=== PATIENT | male | born 1940 | race Two or more races ===

== ENCOUNTER 2024-02-24 13:23 | Emergency (ER) | payer OTHER ==
[~2024-02-24] VITALS: Ht 165.1 cm; Wt 74.4 kg
--- NOTE | 2024-02-24 15:00 | ED.PDOC ---
HPI (NEURO) HPI Comments BIB grandson for left nonradiating paraspinal lumbar pain Reports he feel [address] to the bathroom C/o of pain located to the left paraspinal muscle pain rated 3/10 Denies history of chronic steroid use or history of osteoporosis Denies any history of cancer Denies fevers chills night sweats nausea vomiting unintentional weight loss Denies IV drug use history of HIV/TB Denies abdominal "tearing" pain Denies syncope Denies urinary incontinence or urinary changes Denies numbness tingling of the groin or inner thigh Denies previous back procedure or surgery Chief Complaint: Fall Injury Time Seen by MD: 14:03 Reviewed Notes: Nurses Notes, Medications, Allergies Information Source: Patient Mode of Arrival: Ambulatory Family History Family History: Reviewed,noncontributory to illness Social History Smoker: Non-Smoker Alcohol: Denies ETOH Use Drugs: Denies Drug Use All Other Systems: Reviewed and Negative (per hpi) Physical Exam General Appearance: No Apparent Distress, Normal HEENT: Head (Normocephalic atraumatic), Normal ENT Inspection, Pharynx Normal, TMs Normal Neck: Full Range of Motion, Non-Tender, Normal, Normal Inspection Respiratory: Chest Non-Tender, Lungs Clear, No Accessory Muscle Use, No Respiratory Distress, Normal Breath Sounds Cardiovascular: No Edema, No JVD, No Murmur, No Gallop, Normal Peripheral Pulses, Regular Rate/Rhythm Breast Exam: Deferred Gastrointestinal: No Organomegaly, Non Tender, No Pulsatile Mass, Normal Bowel Sounds, Soft Genitalia: Deferred Pelvic: Deferred Rectal: Deferred Extremities: No calf tenderness, Normal capillary refill, Normal inspection, Normal range of motion, Non-tender, No pedal edema Musculoskeletal : Apperance: Normal Neurologic: Alert, 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 Was a procedure done?: No Differential Diagnosis (SZ) Seizure: Other X-Ray, Labs, Meds, VS Vital Signs Date Time Temp Pulse Resp B/P (MAP) Pulse Ox O2 Delivery O2 Flow Rate FiO2 02/24/24 16:03 98.1 69 18 164/74 (104) 98 98.1 02/24/24 16:03 72 18 98 Room Air 02/24/24 13:55 98.0 66 18 176/72 (106) 96 PATIENT: JOSE MOBLEYOACCT: [id number]: [id number] : 1940 LOC: ER ROOM / BED: / AGE / SEX: 83 / M ADM STATUS: REG ER SERVICE [id number] ORDERING PHYSICIAN: DARREN GONZALEZ NP PROCEDURE(s): LUMB2 - LUMBAR SPINE 3 VIEW REASON: back pain ORDER NUMBER(s): [id number], ACCESSION NUMBER(s): [id number] CLINICAL INDICATION: back pain TECHNIQUE: 3 radiographic views of the lumbar spine were obtained. Comparison: None FINDINGS/IMPRESSION: Multilevel mild loss of vertebral body height of the lower thoracic spine of unknown chronicity. Otherwise, the vertebral body heights are maintained and no evidence of acute traumatic fractures. Grade 1 anterolisthesis of L4 on L5. Multilevel [id number] degenerative changes of the lumbar spine. Nonspecific punctate densities overlying the lower lumbar vertebra posterior elements. If symptoms persist, consider CT for further evaluation. ATED BY: MICHAEL LUBIN DO DICTATED DATE/TIME: 02/24/241552 SIGNED BY: MICHAEL LUBIN DO SIGNED DATE/TIME: 02/24/241552 CC: X-Ray, Labs, Meds, VS Comment Supportive care advised (rest, ice, heat, NSAIDs, stretching exercises) Massage muscles with cold pack or ice for 20 minutes 4 times per day. Usually most useful if there is swelling during the first 48 hours Heating pad on the most painful area for 20 minutes to relieve muscle spasm Sleep and the most comfortable sleeping position (usually on the side with knees bent) Light stretching, no strenuous activity, avoid frequent bending, avoid carrying heavy objects Discussed possible benefits of yoga and acupuncture On reevaluation, patient had symptomatic improvement. Patient is stable for discharge at this time. External notes reviewed. Test results and diagnostic imaging interpreted. All diagnostic findings, discharge care, education and instructions provided Follow-up with PCP in 2 to 3 days Patient verbalized understanding and agreed to treatment plan Vital signs stable, afebrile, no acute distress noted Patient ambulatory with strong steady gait Advised to return precautions for any new or worsening symptoms, return to ER immediately for re-evaluation Patient is aware that the purpose of this visit was for an acute medical emergency requiring emergent stabilization. Chronic conditions, including malignancies have not been ruled out. Patient is instructed to follow up with PCP as directed and discharge instructions for continued care and workup. If unable to arrange follow-up, patient is to return to the emergency department for reassessment. Patient (parent or legal guardian if applicable) was given verbal and written discharge instructions and acknowledges understanding. Time of 1ST Reevaluation: 16:03 Reevaluation 1ST: Improved Patient Education/Counseling: Diagnosis, Treatment Family Education/Counseling: Diagnosis, Treatment Departure 1 Departure Time of Disposition: 16:03 Impression: Primary Impression: Pain in paraspinal region Disposition: 01 HOME / SELF CARE / HOMELESS Condition: Stable e-Prescriptions Lidocaine (LIDODERM 5% TOPICAL PATCH) 1 Patch Ph 1 PATCH TOP DAILY for 30 Days, #30 PATCH 0 Refills Prov: DARREN GONZALEZ NP 02/24/24 Discharged With: Relative Critical Care Note Critical Care Time?: No Stability Stability form required: No Heart Score Heart Score: Heart Score Response (Comments) Value History N/A 0 EKG N/A 0 Age N/A 0 Risk Factors N/A 0 Troponin N/A 0 Total 0 DARREN GONZALEZ NP Feb 24, 2024 15:00
--- NOTE | 2024-02-24 15:56 | DVH ---
CLINICAL INDICATION: back pain TECHNIQUE: 3 radiographic views of the lumbar spine were obtained. Comparison: None FINDINGS/IMPRESSION: Multilevel mild loss of vertebral body height of the lower thoracic spine of unknown chronicity. Othe rwise, the vertebral body heights are maintained and no evidence of acute traumatic fractures. Grade 1 anterolisthesis of L4 on L5. Multilevel [id number] degenerative changes of the lumbar spine. Nonspecific punctate densities overlying the lower lumbar vertebra posterior elements. If symptoms pe rsist, consider CT for further evaluation.
[2024-02-24 16:03] VITALS: BP 164/74; PULSE 72; RESP 18; TEMP 98.1; O2SAT 98
[2024-02-24] MEDS ORDERED: LIDO5DIS21 TOP (16:04)
== END 2024-02-24 16:14 | disposition home or self-care (01) ==
LOC: ER 13:23
DX: M54.50 Low back pain, unspecified (principal)
CPT/HCPCS: 72100